=== PATIENT | male | born 1965 | race African-American/Black ===

== ENCOUNTER → 2016-10-07 | Outpatient (CLI) | payer BC ==
[~2016-10-07] VITALS: Ht 165.1 cm; Wt 72.6 kg
[~2016-10-07] MED LIST: ALPR1TAB2 PO; ASPI-39 PO; LOSA1TAB18 PO; MULT1TAB45 PO; VERA40TA PO
[2016-10-07 12:21] VITALS: BP 126/82
--- NOTE | 2016-10-07 13:57 | RAD ---
Ultrasound-guided right thyroid biopsy, 10/07/2016: History: Cold nodule Under local anesthesia, aseptic conditions and sonographic guidance a 25-gauge needle was passed into the dominant cold nodule in the lower pole of the right lobe of the gland via an anteromedial approach. 4 separate aspirates were obtained in this manner and sent to pathology for evaluation. The pathology results are pending. The patient tolerated the procedure well and left the department in good condition.
--- NOTE | 2016-10-08 16:43 | PATHOLOGY ---
CYTOPATHOLOGY REPORT CLINICAL HISTORY: Right thyroid mass, prominent nodule Right cold nodule SPECIMEN(S) RECEIVED: A.Fine needle aspiration, Right thyroid FINAL DIAGNOSIS: Right thyroid nodule, fine needle aspiration: - Monson category: Benign. Clusters of thyroid follicular epithelial cells and colloid are identified within a background of blood. (JPM:csd; d/t: 10/08/2016) PATHOLOGIST: Sai Butler M.D. REPORT ELECTRONICALLY SIGNED BY: Sai Butler M.D. DATE/TIME: 10/08/2016 16:42 GROSS PATHOLOGY: A. Fine needle aspiration, Right thyroid: The specimen is labeled "Horacio Rivas" and consists of two fixed slide, two air dried slides and two H and E slides. Thirty mL of clear pink fluid in CytoLyt from the needle rinse is also submitted and One Thinprep slide was prepared from this material. (mm 10.07.2016) Also received is the RNARetain vial will be held for molecular studies if needed. TAIL BOARD WORKER(S): YUN Stafford([facility]) INITIAL CPT CODE(S): A; 32165 Professional services performed by [facility] [place] [address] Technical services performed by [facility] at [address] [place] [address], [facility] [address], [place] [address]. PATIENT: HORACIO RIVAS /AGE: 10 1965 (Age: 51) SEX: M PATIENT #: [id number] ALT CASE #: SPECIMEN COLLECTION DATE: 10/07/2016 SPECIMEN RECEIVED DATE: 10/07/[address] [facility] [address] [place] [address], [address] [place] [address] PHONE: [phone] DIRECTOR: Harrison House M.D. * * * END OF REPORT * * *
== END | disposition home or self-care (01) ==
LOC: US 11:44
PROVIDERS: ATTEND Specialist
DX: E04.1 Nontoxic single thyroid nodule (principal)
CPT/HCPCS: 60300; 76942; 88173

== ENCOUNTER 2018-05-08 14:36 | Emergency (ER) | payer SELFPAY ==
[~2018-05-08] VITALS: Ht 165.1 cm; Wt 81.6 kg
[~2018-05-08 14:36] MED LIST changes: -LOSA1TAB18 PO; +LOSA1TAB25 PO
[2018-05-08] MEDS ORDERED: IV NORMAL SALINE 1000ML BAG 1,000 ML IV ONE (15:15)
--- NOTE | 2018-05-08 15:29 | PHYS DOC ---
Past Medical History Past Medical History: Hypertension, Kidney Stone Additional Past Surgical Histo: NECK SURGERY(THYROID) Alcohol Use: Occasionally Drug Use: None Adult General Chief Complaint Chief Complaint: DIZZY/LIGHT HEADED HPI HPI Patient is a 53 year old male who presents with dizziness first part of this week and then lightheadedness today and flulike last 3 days. Patient states that for 3 days has had some right-sided chest pain but denies any chest pain for the last 3 days. Patient denies any pain at this time. Patient denies any nausea, vomiting, diarrhea. Patient is steady on his feet. Patient states she's also been waking up every morning with a headache he takes Tylenol for and takes his pain away. Patient denies any shortness of air or chest pain. Patient denies any cough. Patient denies any fevers. Patient states his only past medical history is hypertension and kidney stones. Patient states he does smoke but not every day. Patient denies any alcohol use or drug use. Review of Systems Review of Systems Constitutional: Denies fever or chills [] Eyes: Denies change in visual acuity, redness, or eye pain [] HENT: Denies nasal congestion or sore throat [] Respiratory: Denies cough or shortness of breath [] Cardiovascular: No additional information not addressed in HPI [] GI: Denies abdominal pain, nausea, vomiting, bloody stools or diarrhea [] : Denies dysuria or hematuria [] Musculoskeletal: Denies back pain or joint pain [] Integument: Denies rash or skin lesions [] Neurologic: Headache, Dizziness, light headed. Denies focal weakness or sensory changes [] Endocrine: Denies polyuria or polydipsia [] All other systems were reviewed and found to be within normal limits, except as documented in this note. Current Medications Current Medications Current Medications Medications (Trade) Dose Ordered Sig/Oliva Start Time Stop Time Status Last Admin Dose Admin Sodium Chloride 1,000 ml @ 1,000 mls/hr 1X ONCE 05/08/18 15:15 05/08/18 16:14 DC 05/08/18 15:40 1,000 MLS/HR Allergies Allergies Allergies Coded Allergies Type Severity Reaction Last Updated Verified Iodine and Iodide Containing Produc Adverse Reaction Intermediate Nausea Yes Physical Exam Physical Exam Constitutional: Well developed, well nourished, no acute distress, non-toxic appearance. [] HENT: Normocephalic, atraumatic, bilateral external ears normal, oropharynx moist, no oral exudates, nose normal. [] Eyes: PERRLA, EOMI, conjunctiva normal, no discharge. [] Neck: Normal range of motion, no tenderness, supple, no stridor. [] Cardiovascular:Heart rate regular rhythm, no murmur [] Lungs & Thorax: Bilateral breath sounds clear to auscultation [] Abdomen: Bowel sounds normal, soft, no tenderness, no masses, no pulsatile masses. [] Skin: Warm, dry, no erythema, no rash. [] Back: No tenderness, no CVA tenderness. [] Extremities: No tenderness, no cyanosis, no clubbing, ROM intact, no edema. [] Neurologic: Alert and oriented X 3, normal motor function, normal sensory function, no focal deficits noted. [] Psychologic: Affect normal, judgement normal, mood normal. [] Current Patient Data Vital Signs Vital Signs Date Time Temp Pulse Resp B/P (MAP) Pulse Ox O2 Delivery O2 Flow Rate FiO2 05/08/18 15:01 97.3 66 16 151/97 (115) 97 Room Air 97.3 Lab Values Laboratory Tests Test 05/08/18 15:10 05/08/18 16:15 White Blood Count 4.1 x10^3/uL (4.0-11.0) Red Blood Count 4.80 x10^6/uL (4.30-5.70) Hemoglobin 15.0 g/dL (13.0-17.5) Hematocrit 43.3 % (39.0-53.0) Mean Corpuscular Volume 90 fL (79-100) Mean Corpuscular Hemoglobin 31 pg (25-35) Mean Corpuscular Hemoglobin Concent 35 g/dL (31-37) Red Cell Distribution Width 13.2 % (11.5-14.5) Platelet Count 116 x10^3/uL (140-400) L Neutrophils (%) (Auto) 67 % (31-73) Lymphocytes (%) (Auto) 22 % (24-48) L Monocytes (%) (Auto) 9 % (0-9) Eosinophils (%) (Auto) 2 % (0-3) Basophils (%) (Auto) 1 % (0-3) Neutrophils # (Auto) 2.7 x10^3uL (1.8-7.7) Lymphocytes # (Auto) 0.9 x10^3/uL (1.0-4.8) L Monocytes # (Auto) 0.4 x10^3/uL (0.0-1.1) Eosinophils # (Auto) 0.1 x10^3/uL (0.0-0.7) Basophils # (Auto) 0.0 x10^3/uL (0.0-0.2) Sodium Level 142 mmol/L (136-145) Potassium Level 4.2 mmol/L (3.5-5.1) Chloride Level 105 mmol/L (98-107) Carbon Dioxide Level 29 mmol/L (21-32) Anion Gap 8 (6-14) Blood Urea Nitrogen 15 mg/dL (8-26) Creatinine 0.9 mg/dL (0.7-1.3) Estimated GFR (Cockcroft-Gault) 106.8 Glucose Level 94 mg/dL (70-99) Calcium Level 9.4 mg/dL (8.5-10.1) Troponin I Quantitative < 0.017 ng/mL (0.000-0.055) Urine Collection Type Unknown Urine Color Yellow Urine Clarity Clear Urine pH 5.5 Urine Specific [place] 1.025 Urine Protein Negative mg/dL (NEG-TRACE) Urine Glucose (UA) Negative mg/dL (NEG) Urine Ketones (Stick) Negative mg/dL (NEG) Urine Blood Negative (NEG) Urine Nitrite Negative (NEG) Urine Bilirubin Negative (NEG) Urine Urobilinogen Dipstick 1.0 mg/dL (0.2 mg/dL) Urine Leukocyte Esterase Negative (NEG) Urine RBC 0 /HPF (0-2) Urine WBC 0 /HPF (0-4) Urine Squamous Epithelial Cells None /LPF Urine Bacteria 0 /HPF (0-FEW) Urine Opiates Screen Neg (NEG) Urine Methadone Screen Neg (NEG) Urine Barbiturates Neg (NEG) Urine Phencyclidine Screen Neg (NEG) Urine Amphetamine/Methamphetamine Neg (NEG) Urine Benzodiazepines Screen Pos (NEG) Urine Cocaine Screen Neg (NEG) Urine Cannabinoids Screen Neg (NEG) Urine Ethyl Alcohol Neg (NEG) Laboratory Tests 05/08/18 15:10 Laboratory Tests 05/08/18 15:10 EKG EKG Sinus rhythm without STEMI Interpretation Time: [address] Soto Radiology/Procedures Radiology/Procedures CT head, CT Chest Impressions: [facility] [address] [place] [address] IMAGING REPORT Signed PATIENT: HORACIO MEDINA ACCOUNT: [id number] : 1965 LOCATION: ER AGE: 53 SEX: M EXAM STATUS: REG ER ORD. PHYSICIAN: ADNRZEJ BELL APRN REASON: dizziness/ headaches PROCEDURE: CT HEAD WO CONTRAST CT HEAD WO CONTRAST dated 05/08/2018 3:18 PM Indication:HEADACHE AND DIZZINESS, NO PRIORS Comparison: No comparison is available. Technique: Noncontrast images were performed. One or more of the following individualized dose reduction techniques were utilized for this examination: 1. Automated exposure control 2. Adjustment of the mA and/or kV according to patient size 3. Use of iterative reconstruction technique Findings: There is no apparent intracranial mass, hemorrhage or abnormal extra-axial fluid collection. No area of abnormal density is seen in the brain. The ventricles and basilar cisterns are normally positioned. The sinuses and mastoid air cells appear clear. There is sheetlike high attenuation in the subcutaneous fat over the posterior scalp. This is of uncertain etiology, but could indicate some fibromatosis or other chronic condition. IMPRESSION: No evidence of acute intracranial abnormality. Electronically signed by: Martha Justice Jr., MD (05/08/2018 3:29 PM) [facility] [place] and SIGNED BY: MARTHA JUSTICE Jr, MD DATE: 05/08/18 1527 [facility] [address] [place] [address] IMAGING REPORT Signed PATIENT: HORACIO MEDINA ACCOUNT: [id number] : 1965 LOCATION: ER AGE: 53 SEX: M EXAM STATUS: REG ER ORD. PHYSICIAN: ANDRZEJ BELL APRN REASON: dizziness PROCEDURE: CHEST PA & LATERAL Chest PA and lateral 05/08/2018. Reason for exam: Dizziness. Comparison is made with a study of 04/29/2006. No infiltrate or effusion is seen. Heart size and pulmonary vascularity appear normal. IMPRESSION: No acute disease. Electronically signed by: Martha Justice Jr., MD (05/08/2018 3:33 PM) [facility] [place] and SIGNED BY: MARTHA JUSTICE Jr, MD DATE: 05/08/18 1532 Course & Med Decision Making Course & Med Decision Making Patient is a 53 year old male who presents with dizziness first part of this week and then lightheadedness today and flulike last 3 days. Patient states that for 3 days has had some right-sided chest pain but denies any chest pain for the last 3 days. Patient denies any pain at this time. Patient denies any nausea, vomiting, diarrhea. Patient is steady on his feet. Patient states she's also been waking up every morning with a headache he takes Tylenol for and takes his pain away. Patient denies any shortness of air or chest pain. Patient denies any cough. Patient denies any fevers. Patient states his only past medical history is hypertension and kidney stones. Patient states he does smoke but not every day. Patient denies any alcohol use or drug use. Patient has no extremity edema. Patient denies any numbness or tingling. Patient is neurologically intact. PERRLA. Negative for Nystagmus. Patient denies any weaknesses in extremities. Patient speaks in full sentences and is not short of air. Patient is allergic to iodine and iodine containing products. Lungs are clear to auscultation in all lobes. Abdomen is soft and without tenderness. Heart rate regular and without murmur. Patient's EKG shows normal sinus rhythm with no STEMI and was read by Dr. Soto. Patient orthostatic vital signs are laying blood pressure is 138/88 and heart rate 72, sitting blood pressure 135/ 87 and heart rate 70, standing blood pressure 120/93 and heart rate 86. Denies any urinary symptoms. Patient states he has not checked his blood pressure daily. Is alert and oriented. CT head and Chest xray show no acute findings. Troponin is negative and blood work is unremarkable. Patient's urine is without infection. His UDS shows benzo of which he is on Xanax currently. Patient will be discharged home with instructions to return if his dizziness worsens, starts having weaknesses or numbness and tingling. Patient should return if his chest pain starts or he becomes short of air. Patient can also return to the ED if his headache is not going away with Tylenol use. Patient should also take his blood pressure in the morning since his headaches are in the morning upon waking. Patient is to follow-up with his primary care as soon as possible. Patient should also sit up and rise very slowly to help prevent any dizziness. Patient to follow-up with his primary care doctor. Dragon Disclaimer Dragon Disclaimer This electronic medical record was generated, in whole or in part, using a voice recognition dictation system. NIHSS Stroke Scale NIH Stroke Scale: NIH Stroke Scale Response (Comments) Value Level of Consciousness: 0 Alert/Responsive 0 LOC Questions: 0 Answers both correctly 0 LOC Commands: 0 Performs both tasks 0 Best Gaze: 0 Normal 0 Visual: 0 No visual loss 0 Facial Palsy: 0 Normal, symmetrical 0 Motor - Left Arm 0 No drift 0 Motor - Right Arm 0 No drift 0 Motor - Left Leg 0 No drift 0 Motor: Right Leg 0 No drift 0 Limb Ataxia: 0 Absent 0 Sensory: 0 No loss 0 Best Language: 0 Normal 0 Dysathria: 0 Normal 0 Extinction and Inattention: 0 Normal 0 Total 0 Departure Departure Impression: Primary Impression: Dizziness Disposition: 01 HOME, SELF-CARE Condition: STABLE Referrals: MARYAN NAPIER (PCP) Patient Instructions: Dizziness Additional Instructions: Instructions to return if dizziness worsens, starts having weaknesses or numbness and tingling. Return if his chest pain starts or he becomes short of air. Patient can also return to the ED if his headache is not going away with Tylenol use. Patient should also take his blood pressure in the morning since his headaches are in the morning upon waking. Patient is to follow-up with his primary care as soon as possible. Patient should also sit up and rise very slowly to help prevent any dizziness. Follow-up with his primary care doctor. ANDRZEJ BELL APRN May 08, 2018 15:29
--- NOTE | 2018-05-08 15:32 | RAD ---
CT HEAD WO CONTRAST dated 05/08/2018 3:18 PM Indication:HEADACHE AND DIZZINESS, NO PRIORS Comparison: No comparison is available. Technique: Noncontrast images were performed. One or more of the following individualized dose reduction techniques were utilized for this examination: 1. Automated exposure control 2. Adjustment of the mA and/or kV according to patient size 3. Use of iterative reconstruction technique Findings: There is no apparent intracranial mass, hemorrhage or abnormal extra-axial fluid collection. No area of abnormal density is seen in the brain. The ventricles and basilar cisterns are normally positioned. The sinuses and mastoid air cells appear clear. There is sheetlike high attenuation in the subcutaneous fat over the posterior scalp. This is of uncertain etiology, but could indicate some fibromatosis or other chronic condition. IMPRESSION: No evidence of acute intracranial abnormality. Electronically signed by: Dwayne Justice Jr., MD (05/08/2018 3:29 PM) [facility] [place]
--- NOTE | 2018-05-08 15:36 | RAD ---
Chest PA and lateral 05/08/2018. Reason for exam: Dizziness. Comparison is made with a study of 04/29/2006. No infiltrate or effusion is seen. Heart size and pulmonary vascularity appear normal. IMPRESSION: No acute disease. Electronically signed by: Dwayne Justice Jr., MD (05/08/2018 3:33 PM) [place]
[2018-05-08 15:37] LABS: BASO % 1 % (0-3); EOS # 0.1 x10^3/uL (0.0-0.7); EOS % 2 % (0-3); HEMATOCRIT 43.3 % (39.0-53.0); LYMPH # 0.9 x10^3/uL (1.0-4.8); LYMPH % 22 % (24-48); MEAN CORPUSCULAR HEMOGLOBIN 31 pg (25-35); MEAN CORPUSCULAR HGB CONC 35 g/dL (31-37); MEAN CORPUSCULAR VOLUME 90 fL (79-100); MONO # 0.4 x10^3/uL (0.0-1.1); MONO % 9 % (0-9); NEUT # 2.7 x10^3uL (1.8-7.7); NEUT % 67 % (31-73); PLATELET COUNT 116 x10^3/uL (140-400); RED CELL DISTRIBUTION WIDTH 13.2 % (11.5-14.5); WHITE BLOOD COUNT 4.1 x10^3/uL (4.0-11.0)
[2018-05-08 15:46] LABS: CALCIUM 9.4 mg/dL (8.5-10.1); CREATININE 0.9 mg/dL (0.7-1.3); GFR 106.8
[2018-05-08 15:48] LABS: POTASSIUM 4.2 mmol/L (3.5-5.1)
[2018-05-08 16:25] VITALS: BP 136/90
[2018-05-08 16:27] LABS: BILIRUBIN,URINE NEGATIVE (NEG); CLARITY,URINE CLEAR; COLOR,URINE YELLOW; NITRITE,URINE NEGATIVE (NEG); PH,URINE 5.5; PROTEIN,URINE NEGATIVE (NEG-TRACE)
[2018-05-08 16:33] LABS: AMPHETAMINE/METHAMPHETAMINE NEG (NEG); BARBITURATES NEG (NEG); BENZODIAZEPINES POS (NEG); CANNABINOIDS NEG (NEG); COCAINE NEG (NEG); METHADONE NEG (NEG); OPIATES NEG (NEG); PHENCYCLIDINE NEG (NEG)
[2018-05-08 16:37] LABS: BACTERIA,URINE 0 /HPF (0-FEW); RBC,URINE 0 /HPF (0-2); WBC,URINE 0 /HPF (0-4)
--- NOTE | 2018-05-09 08:05 | EKG ---
[facility] [address] [place] [address] Test Date: 2018-05-08 Test Time: 14:52:14 Pat Name: HORACIO MEDINA Department: Room: Gender: M Field Support Technician: : 1965 Requested By: ANDRZEJ BELL Order Number: [id number] Reading MD: Brian Glover MD Measurements Intervals [place] Rate: 74 P: 29 UT: 170 QRS: -36 QRSD: 94 T: 2 QT: 370 QTc: 416 Interpretive Statements SINUS RHYTHM NON-SPECIFIC ST/T CHANGES Electronically Signed On 05-09-2018 9:48:57 CDT by Brian Glover MD
== END 2018-05-08 17:15 | disposition home or self-care (01) ==
LOC: ER 14:36
DX: R42 Dizziness and giddiness (principal); I10 Essential (primary) hypertension; Z87.442 Personal history of urinary calculi; Z91.041 Radiographic dye allergy status
CPT/HCPCS: 36415; 70450; 71046; 80048; 80307; 81001; 84484; 85025; 93005; 96360; 99285; J7030; G0479

== ENCOUNTER → 2019-01-28 | Outpatient (CLI) | payer BC ==
--- NOTE | 2019-01-28 17:40 | RAD ---
Ultrasound of thyroid. HISTORY: Thyroid nodules, hyperthyroidism, previous biopsy Ultrasound was used to evaluate the thyroid gland. Patient has a multinodular right thyroid. There is a mildly heterogeneous nodule in the mid to upper thyroid measuring 1.5 cm x 0.8 cm. There is a more homogeneous solid nodule in the mid right thyroid measuring 1.9 x 2.3 x 1.5 cm. Left thyroid is also heterogeneous. There is a nodule in the lower right thyroid measuring 2.6 x 1.9 x 2.1 cm. There is a nodule in the mid thyroid measuring 2.7 x 3.9 x 1.6 cm. The larger nodule in the mid to lower thyroid on the right was sampled previously and was benign. Left thyroid nodules are similar to an old study from April 2016. IMPRESSION: 1. Multinodular gland, Similar to an old ultrasound from April 2016. Electronically signed by: Nikhil Fisher MD (01/28/2019 5:37 PM) [facility]
== END | disposition home or self-care (01) ==
LOC: US 15:25
PROVIDERS: ATTEND Family Medicine
DX: E04.2 Nontoxic multinodular goiter (principal); E05.90 Thyrotoxicosis, unspecified without thyrotoxic crisis or storm
CPT/HCPCS: 76536

== ENCOUNTER → 2019-04-13 | Day surgery (SDC) | payer BC ==
[~2019-04-13] MED LIST changes: +ALLO300T PO; +IV RINGERS,LACTATED 1000ML 1,000 ML IV SCH; +PROPOFOL 20 ML IV ONE
[2019-04-13 09:18] VITALS: BP 141/80
--- NOTE | 2019-04-14 15:07 | PATHOLOGY ---
[facility] Accession Number: [id number] . 01 Material submitted: . rectum - RECTAL POLYPS . 01 Clinical history: . CRCS . 02 Diagnosis: Colorectal biopsies, rectal polyps: - Tubular adenomas. (JPM:stephany; 04/14/2019) QMS 04/14/2019 0924 Local . 02 Comment: There is no high grade dysplasia or evidence of malignancy. . 02 Electronically signed: . Sai Butler MD, Pathologist NPI- [id number] . 01 Gross description: . Received in formalin labeled "Rivas, Mark, rectal polyp," and additionally labeled on the requisition as "polyps," are multiple segments of alves soft tissue measuring 1.8 x 1.7 x 0.5 cm in aggregate dimensions. The specimen is filtered and entirely submitted in cassette A1. (TSD; 04/13/2019) TOB/TOB 04/13/2019 1846 Local . 02 Pathologist provided ICD-10: D12.8 . 02 CPT . 543329 Specimen Comment: A courtesy copy of this report has been sent to Specimen Comment: [phone], . Specimen Comment: Report sent to / DR NAPIER Performed at: 01 [facility] [address], [place], [place] [id number] MD Tyrone Yeboah MD Phone: [phone] Performed at: 02 [facility] [address] [place], [place] [id number] MD Sai Butler MD Phone: [phone]
== END ==
LOC: SURG 07:26
PROVIDERS: ATTEND Internal Medicine Gastroenterology
DX: Z12.11 Encounter for screening for malignant neoplasm of colon (principal); D12.8 Benign neoplasm of rectum; K57.30 Diverticulosis of large intestine without perforation or abscess without bleeding; K64.0 First degree hemorrhoids; F41.9 Anxiety disorder, unspecified; F32.9 Major depressive disorder, single episode, unspecified; I10 Essential (primary) hypertension; F17.200 Nicotine dependence, unspecified, uncomplicated; Z72.89 Other problems related to lifestyle; Z98.890 Other specified postprocedural states
CPT/HCPCS: 45385; 88305; J2704